=== PATIENT | female | born 1950 | race Caucasian/White ===

== ENCOUNTER → 2020-06-11 | Outpatient (CLI) | payer MEDICARE, OTHER ==
[~2020-06-11] MED LIST: VITAMIN B COMP1 EACH PO; VITAMIN D3250 MC1 PO
== END ==
LOC: LAB 21:27 → EDSTATUS 06-15 12:00
PROVIDERS: ATTEND Ophthalmology
DX: Z01.812 Encounter for preprocedural laboratory examination (principal); H25.11 Age-related nuclear cataract, right eye; Z20.822 Contact with and (suspected) exposure to COVID-19
CPT/HCPCS: U0002